=== PATIENT | female | born 1990 | race Caucasian/White ===

== ENCOUNTER 2018-05-29 19:24 | Emergency (ER) | payer OTHER ==
[~2018-05-29] VITALS: Ht 160 cm; Wt 105.9 kg
--- NOTE | 2018-05-29 19:56 | NUR ---
FIRST CONTACT WITH PT. PT AMBULATORY/NAD NOTED. PT REPORTS CONTINUED PAINFUL URINATION DESPITE ABX RX FROM [facility] ONE WEEK AGO. +PELVIC CRAMPING/N/V/CONSTIPATION. DENIES BLOOD IN EMESIS OR STOOL/VAGINAL DC OR BLEEDING/FEVER. + HOME TEST. LMP: "EARLY APRIL"; . LBM:YESTERDAY, "SMALL, IT DOEN'T SEEM LIKE ITS ENOUGH". UA COLLECTED AND SENT TO LAB.
[2018-05-29 20:00] VITALS: BP 115/60
[2018-05-29 20:02] LABS: BASOPHILS # (AUTO) 0.03 x10^3/uL (0-0.1); BASOPHILS % (AUTO) 0 % (0-1); EOSINOPHILS # (AUTO) 0.15 x10^3/uL (0-0.4); EOSINOPHILS % (AUTO) 2 % (1-7); LYMPHOCYTES # (AUTO) 3.37 x10^3/uL (1-3.4); LYMPHOCYTES % (AUTO) 37 % (22-44); MD NO; MEAN CORPUSCULAR HEMOGLOBIN 33.4 pg (27.0-34.8); MEAN CORPUSCULAR HGB CONC 34.5 g/dL (32.4-35.8); MEAN CORPUSCULAR VOLUME 96.7 fL (80-100); MEAN PLATELET VOLUME 7.9 fL (7.4-10.4); MONOCYTES # (AUTO) 0.58 x10^3/uL (0.2-0.8); MONOCYTES % (AUTO) 6 % (2-9); NEUTROPHILS # (AUTO) 4.98 x10^3/uL (1.8-6.8); NEUTROPHILS % (AUTO) 55 % (42-75); PLATELET COUNT 347 x10^3/uL (130-400); RED BLOOD COUNT 3.81 x10^6/uL (3.82-5.3); RED CELL DISTRIBUTION WIDTH 13.1 % (9.6-15.2)
[2018-05-29 20:14] LABS: ALBUMIN 3.7 g/dL (3.4-5.0); ANION GAP 8 mmol/L (5-15); CALCIUM 8.4 mg/dL (8.5-10.1); CHLORIDE 110 mmol/L (98-107); CREATININE 0.71 mg/dL (0.55-1.02)
[2018-05-29 20:18] LABS: MICROSCOPIC NOT IND
--- NOTE | 2018-05-29 20:18 | NUR ---
PT MEDICATED PER EMAR FOR N/V
[2018-05-29] MEDS ORDERED: ONDANSETRON ODT 4 MG ONE (20:21)
[2018-05-29 20:25] LABS: CULTURE INDICATED? NO
[2018-05-29] MEDS ORDERED: ONDANSETRON ODT 4 MG PO ONE (20:30)
--- NOTE | 2018-05-29 21:01 | NUR ---
PT RESTING IN [facility]. 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
--- NOTE | 2018-05-29 21:22 | NUR ---
PT IN [place]
--- NOTE | 2018-05-29 21:39 | NUR ---
PT RETURNED FROM [place]. NAD NOTED.
--- NOTE | 2018-05-29 22:03 | NUR ---
DC EDUCATION PROVIDED, PT DEMONSTRATES UNDERSTNADING. TP AMBULATED STEADILY TO DC WITH RN AND SO
== END 2018-05-29 22:04 | disposition home or self-care (01) ==
LOC: ED 21:58
DX: O34.81 Maternal care for other abnormalities of pelvic organs, first trimester (principal); N83.202 Unspecified ovarian cyst, left side; O21.9 Vomiting of pregnancy, unspecified; K59.00 Constipation, unspecified; M54.5 Low back pain; Z3A.01 Less than 8 weeks gestation of pregnancy
CPT/HCPCS: 36415; 76801; 80048; 81003; 82040; 84702; 85025; 99284; Q0162